=== PATIENT | female | born 1990 | race Caucasian/White ===

== ENCOUNTER → 2017-10-06 12:36 | Outpatient (CLI) | payer OTHER, SELFPAY ==
[2017-10-06 14:28] LABS: Absolute Lymphocyte Count 1.12 X10^3/ul (0.83-4.51); Absolute Neutrophil Count 4.8 X10^3/uL (2.0-7.7); Basophil# 0.01 X10^3/uL; Basophil% 0.2 % (0-1); Eosinophil# 0.05 X10^3/uL; Eosinophils% 0.8 % (0-5); Hematocrit 30.5 % (37-47); Hemoglobin 9.9 g/dl (12.0-15.0); Lymphocyte # 1.12 X10^3/ul (4.0); Mean Corp Hgb Conc 32.5 g/gl (32-36); Mean Corpuscular Hgb 28.4 pg (27.0-32.0); Mean Corpuscular Volume 87.6 fL (81-99); Mean Platelet Vol. 10.9 fl (6.2-12.0); Monocyte# 0.58 X10^3/uL; Monocyte% 8.8 % (0-10); Neutrophil # 4.76 X10^3/uL (2.7-7.7); Neutrophil % 72.4 % (47-70); Platelet Count 131 K/mm3 (150-450); RBC Distribution Width CV 11.7 % (11.6-14.6); RBC Distribution Width SD 36.1 fl (35.1-43.9); Red Blood Count 3.48 M/mm3 (4.2-5.4); White Blood Count 6.6 K/mm3 (4.4-11.0)
[2017-10-06 14:30] LABS: POSITIVE COUNT NO; POSITIVE DIFFERENTIAL NO; POSITIVE MORPHOLOGY NO
[2017-10-06 15:06] LABS: Glucose Challenge Gest 1H 50g 100 mg/dL (70-140)
== END ==
PROVIDERS: Visit Provider Obstetrics & Gynecology
DX: O30.049 Twin pregnancy, dichorionic/diamniotic, unspecified trimester (principal); Z3A.00 Weeks of gestation of pregnancy not specified
CPT/HCPCS: 36415; 82950; 85025

== ENCOUNTER → 2017-10-18 10:44 | Outpatient (CLI) | payer OTHER, SELFPAY ==
[2017-10-18 11:48] LABS: Absolute Lymphocyte Count 1.26 X10^3/ul (0.83-4.51); Absolute Neutrophil Count 4.4 X10^3/uL (2.0-7.7); Basophil# 0.01 X10^3/uL; Basophil% 0.2 % (0-1); Eosinophil# 0.06 X10^3/uL; Eosinophils% 0.9 % (0-5); Hematocrit 32.1 % (37-47); Hemoglobin 10.2 g/dl (12.0-15.0); Lymphocyte # 1.26 X10^3/ul (4.0); Lymphocyte % 19.4 % (19-41); Mean Corp Hgb Conc 31.8 g/gl (32-36); Mean Corpuscular Hgb 27.4 pg (27.0-32.0); Mean Corpuscular Volume 86.3 fL (81-99); Mean Platelet Vol. 11.1 fl (6.2-12.0); Monocyte# 0.73 X10^3/uL; Monocyte% 11.2 % (0-10); Neutrophil % 67.5 % (47-70); Platelet Count 121 K/mm3 (150-450); RBC Distribution Width CV 12.3 % (11.6-14.6); RBC Distribution Width SD 38.4 fl (35.1-43.9); Red Blood Count 3.72 M/mm3 (4.2-5.4); White Blood Count 6.5 K/mm3 (4.4-11.0)
[2017-10-18 12:02] LABS: POSITIVE COUNT NO; POSITIVE DIFFERENTIAL NO; POSITIVE MORPHOLOGY NO
== END ==
PROVIDERS: Visit Provider Obstetrics & Gynecology
DX: O99.019 Anemia complicating pregnancy, unspecified trimester (principal); Z3A.00 Weeks of gestation of pregnancy not specified
CPT/HCPCS: 36415; 85025

== ENCOUNTER → 2017-10-18 14:46 | Outpatient (CLI) | payer OTHER, SELFPAY | PROVIDERS: Visit Provider Obstetrics & Gynecology | DX: O26.893 Other specified pregnancy related conditions, third trimester (principal); L29.9 Pruritus, unspecified; N89.8 Other specified noninflammatory disorders of vagina; O30.049 Twin pregnancy, dichorionic/diamniotic, unspecified trimester; Z3A.00 Weeks of gestation of pregnancy not specified | CPT/HCPCS: 87070; 87086; 87088; 87205 ==

== ENCOUNTER 2017-10-25 11:35 | Outpatient (CLI) | payer OTHER, SELFPAY ==
[2017-10-25 11:47] VITALS: BMI 27.6
[2017-10-25 13:02] LABS: Color, Urine Yellow (Yellow); Glucose, Dipstick Normal (Normal); Ketone-Dipstick 5 mg/dl (Negative); Leukocyte Esterase-Dipstick 25 /ul (Negative); Nitrite-Dipstick Negative (Negative); Occult Blood-Urine 10 /ul (Negative); Protein-Dipstick Negative (Negative); Urine Bilirubin Dipstick Negative (Negative); Urine Clarity Clear (Clear); Urine Urobilinogen Normal (Normal)
[2017-10-25 13:29] LABS: Record Kit Lot#, fFN J7025
[2017-10-25 13:30] LABS: Fetal Fibronectin POSITIVE
[2017-10-25] MEDS: Betamethasone/Betamethasone 30 MG/5 ML Vial 12 MG IM (13:50)
[2017-10-25] MEDS: Lactated Ringers 1,000 ML 999 ML IV (14:50)
[2017-10-25] MEDS: NIFEdipine 10 MG Capsule 30 MG PO (15:01)
--- NOTE | 2017-10-27 03:30 | OB.TRI.NOTE ---
History of Present Illness Date of Service: 10/25/17 Reason For Visit: R/O LABOR OF TWINS Date of Service: 10/25/17 Gestational age: 29 History of Present Illness: 27 yo @ 31 weeks with Di/Di twins presents with threatened PTL. she has had regular ctx q 2-3 minutes for the last few hours, has a uti and is on antibiotics for this. she denies any fevers or vaginal bleeding, feels good fm x 2 and is feeling pelvic pressure Home Medications Medication Instructions Recorded 1 tab PO QDAY 07/27/17 vitamin,calcium,orckrxam-tort-nnwlz acid tablet citalopram 20 mg tablet 20 mg PO QDAY #30 tab 10/18/17 nitrofurantoin 1 cap PO Q12H 7 Days #14 cap 10/22/17 monohydrate/macrocrystals 100 mg capsule Folic Acid 1 mg PO DAILY@0800 10/25/17 Allergies Penicillins Allergy (Verified 10/25/17 11:49) Swelling prednisone Allergy (Verified 10/18/17 09:45) Rash Sulfa (Sulfonamide Antibiotics) Allergy (Verified 10/18/17 09:45) Rash sulfamethoxazole [From Bactrim] Allergy (Verified 10/18/17 09:45) Rash trimethoprim [From Bactrim] Allergy (Verified 10/18/17 09:45) Rash - Pertinent Past Medical History Pertinent Past Medical History: PCOS PSH: none OB History: previous term uncomplicated NST - FHR Rate Baby A Baseline: 140 Variability:: Moderate Accelerations:: 15 x 15 Decelerations:: None NST Reactive:: Yes FHR Category:: Category I Uterine Activity:: q2-3 mints - FHR Rate Baby B Baseline: 140 Variability:: Moderate Accelerations:: 15 x 15 Decelerations:: None NST Reactive:: Yes FHR Category:: Category I Impression/Plan 27 yo @ 31 weeks with Di Di Twins and Threatened PTL positive FFN and regular contractions- recommend transport to tertiary care facility. give procardia and bmz.
== END 2017-10-25 15:28 | disposition other institution (70) ==
LOC: WPOUT 11:40 → WP 11:41
PROVIDERS: Visit Provider Obstetrics & Gynecology
DX: O60.03 Preterm labor without delivery, third trimester (principal); O30.043 Twin pregnancy, dichorionic/diamniotic, third trimester; Z3A.31 31 weeks gestation of pregnancy
CPT/HCPCS: 96365; 59025; 59050; 81002; 82731; 87086; 87088; 96372; 99218; J7120; G0378; J0702

== ENCOUNTER → 2017-10-31 12:38 | Outpatient (CLI) | payer OTHER, SELFPAY | PROVIDERS: Visit Provider Obstetrics & Gynecology | DX: O23.43 Unspecified infection of urinary tract in pregnancy, third trimester (principal); Z3A.00 Weeks of gestation of pregnancy not specified | CPT/HCPCS: 87086; 87088 ==

== ENCOUNTER 2017-11-05 10:25 | Outpatient (CLI) | payer OTHER, SELFPAY ==
[2017-11-05 10:55] VITALS: BMI 27.2
[2017-11-05 11:18] LABS: ROM Internal Control Test YES-OK TO RESULT pt. (Internal QC); ROM Patient Test Negative (Negative)
--- NOTE | 2017-11-05 19:15 | OB.TRI.NOTE ---
History of Present Illness Date of Service: 11/05/17 Was patient seen by the physician?: Yes Reason For Visit: R/OM Date of Service: 11/05/17 Final BROCK: 12/28/17 Gestational age: 32 Weeks and 3 Days History of Present Illness: 27 yo @ 32w3d presents with threatened PTL and questionable lof. she co clear discharge tonight and some irregular ctx. she denies any vaginal bleeding and feesl good movememnt. 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 general: negative GI: negative Home Medications Medication Instructions Recorded 1 tab PO QDAY 07/27/17 vitamin,calcium,ipsfxovp-qeub-dgmeq acid tablet citalopram 20 mg tablet 20 mg PO QDAY #30 tab 10/18/17 Folic Acid 1 mg PO DAILY@0800 10/25/17 Allergies Penicillins Allergy (Verified 11/05/17 10:56) Swelling prednisone Allergy (Verified 11/05/17 10:56) Rash Sulfa (Sulfonamide Antibiotics) Allergy (Verified 11/05/17 10:56) Rash sulfamethoxazole [From Bactrim] Allergy (Verified 11/05/17 10:56) Rash trimethoprim [From Bactrim] Allergy (Verified 11/05/17 10:56) Rash - Pertinent Past Medical History Pertinent Past Medical History: pcos infertility Physical Exam General: Alert, Oriented x3, No apparent distress Cardiovascular: Regular rate Lungs: Normal air movement Abdomen: Soft, Non Tender, Gravid NST - FHR Rate Baby A Baseline: 140 Variability:: Moderate Accelerations:: 15 x 15 Decelerations:: None NST Reactive:: Yes FHR Category:: Category I Uterine Activity:: q2-7 - FHR Rate Baby B Baseline: 140 Variability:: Moderate Accelerations:: 15 x 15 Decelerations:: None NST Reactive:: Yes FHR Category:: Category I Impression/Plan 27 yo @ 32w3d threatened ptl no cervical change. dc home labor precautions
--- NOTE | 2017-11-05 19:19 | OB.TRI.HP_ITS ---
History of Present Illness Date of Service: 11/05/17 Was patient seen by the physician?: Yes Reason For Visit: R/OM Date of Service: 11/05/17 Final BROCK: 12/28/17 Gestational age: 32 Weeks and 3 Days History of Present Illness: 27 yo @ 32w3d presents with threatened PTL and questionable lof. she co clear discharge tonight and some irregular ctx. she denies any vaginal bleeding and feesl good movememnt. 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 GI: negative Home Medications Medication Instructions Recorded 1 tab PO QDAY 07/27/17 vitamin,calcium,seuakyro-tupa-nvhim acid tablet citalopram 20 mg tablet 20 mg PO QDAY #30 tab 10/18/17 Folic Acid 1 mg PO DAILY@0800 10/25/17 Allergies Penicillins Allergy (Verified 11/05/17 10:56) Swelling prednisone Allergy (Verified 11/05/17 10:56) Rash Sulfa (Sulfonamide Antibiotics) Allergy (Verified 11/05/17 10:56) Rash sulfamethoxazole [From Bactrim] Allergy (Verified 11/05/17 10:56) Rash trimethoprim [From Bactrim] Allergy (Verified 11/05/17 10:56) Rash - Pertinent Past Medical History Pertinent Past Medical History: pcos infertility Physical Exam General: Alert, Oriented x3, No apparent distress Cardiovascular: Regular rate Lungs: Normal air movement Abdomen: Soft, Non Tender, Gravid NST - FHR Rate Baby A Baseline: 140 Variability:: Moderate Accelerations:: 15 x 15 Decelerations:: None NST Reactive:: Yes FHR Category:: Category I Uterine Activity:: q2-7 - FHR Rate Baby B Baseline: 140 Variability:: Moderate Accelerations:: 15 x 15 Decelerations:: None NST Reactive:: Yes FHR Category:: Category I Impression/Plan 27 yo @ 32w3d threatened ptl no cervical change. dc home labor precautions
== END 2017-11-05 16:30 | disposition home or self-care (01) ==
LOC: WPOUT 10:43 → WP 10:44
PROVIDERS: Visit Provider Obstetrics & Gynecology
DX: O60.03 Preterm labor without delivery, third trimester (principal); O30.003 Twin pregnancy, unspecified number of placenta and unspecified number of amniotic sacs, third trimester; Z3A.32 32 weeks gestation of pregnancy
CPT/HCPCS: 59025; 59050; 84112; 99218; G0378

== ENCOUNTER 2017-11-11 17:40 | Outpatient (CLI) | payer OTHER, SELFPAY ==
[2017-11-11 18:03] VITALS: BMI 27.6
[2017-11-11 20:29] LABS: Mucous, Urine 0 SEEN /hpf (<or=2+); Red Blood Cells-Urine 0 SEEN /hpf (0-5)
[2017-11-11 20:39] LABS: Color, Urine Yellow (Yellow); Glucose, Dipstick Normal (Normal); Ketone-Dipstick 5 mg/dl (Negative); Leukocyte Esterase-Dipstick 25 /ul (Negative); Nitrite-Dipstick Negative (Negative); Occult Blood-Urine 10 /ul (Negative); Protein-Dipstick 15 mg/dl (Negative); Urine Bilirubin Dipstick Negative (Negative); Urine Clarity Clear (Clear); Urine Urobilinogen Normal (Normal)
[2017-11-11 20:48] VITALS: BP 102/57; PULSE 82; RESP 16; TEMP 36.9; O2SAT 98
[2017-11-11 20:52] LABS: Bacteria 2+ /hpf (None Seen); Squamous Epithelial Cells - UA 5-10 SEEN /hpf (5-10); White Blood Cells 0-5 SEEN /hpf (0-5)
[2017-11-11] MEDS: Nitrofurantoin Macrocrystals 100 MG Capsule PO (21:01)
--- NOTE | 2017-11-14 01:51 | OB.TRI.HP_ITS ---
History of Present Illness Date of Service: 11/11/17 Reason For Visit: RULE OUT LABOR Date of Service: 11/11/17 Final BROCK: 12/27/17 Gestational age: 33 Weeks and 6 Days History of Present Illness: 27 yo @ 33 weeks presetns with pelvic pressure and contractions, upset stomach. she has had threatened PTL in the last few weeks but has been stable. Home Medications Medication Instructions Recorded 1 tab PO QDAY 07/27/17 vitamin,calcium,tsrxwtrr-wnml-wrpbw acid tablet citalopram 20 mg tablet 20 mg PO QDAY #30 tab 10/18/17 Folic Acid 1 mg PO DAILY@0800 10/25/17 Nitrofurantoin Monohyd/M-Cryst 100 mg PO BID #14 cap 11/12/17 [Macrobid 100 mg Capsule] Allergies Penicillins Allergy (Verified 11/14/17 00:45) Swelling Sulfa (Sulfonamide Antibiotics) Allergy (Verified 11/14/17 00:45) Rash sulfamethoxazole [From Bactrim] Allergy (Verified 11/14/17 00:45) Rash trimethoprim [From Bactrim] Allergy (Verified 11/14/17 00:45) Rash vancomycin Allergy (Verified 11/14/17 00:45) Swelling - Pertinent Past Medical History Pertinent Past Medical History: reviewed- pcos depression 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
== END 2017-11-11 21:09 | disposition home or self-care (01) ==
LOC: WPOUT 17:46 → WP 11-13 08:46
PROVIDERS: Visit Provider Obstetrics & Gynecology
DX: O60.03 Preterm labor without delivery, third trimester (principal); O23.43 Unspecified infection of urinary tract in pregnancy, third trimester; Z3A.33 33 weeks gestation of pregnancy
CPT/HCPCS: 59025; 59050; 81001; 87086; 87088; 99218; G0378

== ENCOUNTER 2017-11-14 01:00 | Inpatient (IN) | payer OTHER, SELFPAY ==
[2017-11-14] MEDS: Lactated Ringers 1,000 ML 50 ML IV ×3 (00:15→05:04)
[2017-11-14 00:28] LABS: Absolute Lymphocyte Count 1.84 X10^3/ul (0.83-4.51); Absolute Neutrophil Count 3.7 X10^3/uL (2.0-7.7); Basophil# 0.02 X10^3/uL; Basophil% 0.3 % (0-1); Eosinophil# 0.06 X10^3/uL; Hematocrit 30.2 % (37-47); Hemoglobin 9.5 g/dl (12.0-15.0); Lymphocyte # 1.84 X10^3/ul (4.0); Lymphocyte % 29.4 % (19-41); Mean Corp Hgb Conc 31.5 g/gl (32-36); Mean Corpuscular Hgb 26.4 pg (27.0-32.0); Mean Corpuscular Volume 83.9 fL (81-99); Mean Platelet Vol. 11.6 fl (6.2-12.0); Monocyte# 0.67 X10^3/uL; Monocyte% 10.7 % (0-10); Neutrophil # 3.65 X10^3/uL (2.7-7.7); Neutrophil % 58.3 % (47-70); Platelet Count 100 K/mm3 (150-450); RBC Distribution Width CV 14.1 % (11.6-14.6); RBC Distribution Width SD 43.6 fl (35.1-43.9); White Blood Count 6.3 K/mm3 (4.4-11.0)
[2017-11-14 00:31] LABS: POSITIVE COUNT NO; POSITIVE DIFFERENTIAL NO; POSITIVE MORPHOLOGY NO
[2017-11-14 00:34] LABS: ROM Internal Control Test YES-OK TO RESULT pt. (Internal QC)
[2017-11-14 00:35] LABS: ROM Patient Test POSITIVE (Negative)
[2017-11-14 00:43] VITALS: BMI 28.0
[2017-11-14] MEDS: Betamethasone/Betamethasone 30 MG/5 ML Vial 12 MG IM (01:15)
[2017-11-14 01:17] LABS: Group B Strep DNA By PCR Negative (Negative); Internal Control PASS; Probe Check PASS; Specimen Processing Control PASS
--- NOTE | 2017-11-14 01:32 | HP.PCM_ITS ---
- Problem List (1) premature rupture of membranes (PPROM) with onset of labor after 24 hours of rupture in third trimester, antepartum Status: Acute (2) Anemia affecting Status: Acute Qualifiers: Comment: iron (3) Gestational thrombocytopenia without hemorrhage in third trimester Status: Acute Comment: cbc monthly (4) Discordant growth in twin gestation Status: Acute Qualifiers: Comment: borderline- 10/16/17 20% repeat in 4 weeks with MFM (5) Depression affecting in second trimester, antepartum Status: Acute Comment: Celexa (6) PCOS (polycystic ovarian syndrome) Status: Acute Comment: clomid (7) with history of infertility Status: Acute Qualifiers: Comment: VEL RGI (8) Dichorionic diamniotic twin Status: Acute Qualifiers: Comment: PRR (print) BROCK 12/27/17 Yo DIAMOND Massiel Joo VEL RGI- nl labs there, A+ blood type History Date of Admission: 11/14/17 Final BROCK: 12/27/17 Gestational age: 33 Weeks and 6 Days History of this : 27 yo @ 33w6d presents PPROM IAL 5 cm dilated with clear LOF since tonight and positive amnisure. She has a history of di/di twin with discordant growth, gestational thrombocytopenia, anemia, and this was an infertility . Pertinent Past Medical History: [facility] Medical History PCOS (polycystic ovarian syndrome) (Acute) Social History Smoking Status: Never smoker alcohol intake: never substance use type: does not use caffeine: Yes frequency: 3-4 times per week seatbelt use: always do you feel safe at home: Yes HPI 33 weeks: Details: JOSE CONTRERAS is a 27 year old who presents for routine OB visit. OB Visit BROCK Calculator Estimated Delivery Date 12/27/17 Based on LMP (certain) 03/22/17 Current WG 32w 6d Number 2 Expected Delivery Route/Plan if Vtx Vtx, consider PPTL Specific Issue/Plans Initial OB labs H.2 Platelets: 121 Type and Screen: A positive RPR: neg Rubella: immune HepBsAg: neg HIV: neg GC/Chlamydia: neg/neg Urine Culture: enterococcus HepC: GCT: Rhogam given: Cystic fibrosis carrier screening: neg 11-16 week testing Sequential Screen: NIPT screening: neg Allergies Penicillins Allergy (Verified 11/14/17 00:45) Swelling Sulfa (Sulfonamide Antibiotics) Allergy (Verified 11/14/17 00:45) Rash sulfamethoxazole [From Bactrim] Allergy (Verified 11/14/17 00:45) Rash trimethoprim [From Bactrim] Allergy (Verified 11/14/17 00:45) Rash vancomycin Allergy (Verified 11/14/17 00:45) Swelling Smoking Status: Never smoker Alcohol: None Drug Use: none Number of Fetus(es): 2 - FHT A 130s moderate variability reactive B 130s moderate variability reactive toco q 2-5 Review of Systems Constitutional: Denies: Chills, Fever, Weight Change HEENT: Denies: Head Aches, Sinus Congestion, Sinus Drainage Cardiovascular: Denies: Chest Pain, Palpitations Respiratory: Denies: Cough, Shortness of breath at rest, Sputum production Gastrointestinal: Reports: Abdominal Pain Gynecological: Reports: Vaginal discharge. Denies: Vaginal bleeding Skin: Denies: Rash, Wounds Neurological: Denies: Numbness, Tingling, Focal weakness Psychiatric: Reports: Anxiety, Depression Physical Exam General: Alert, Oriented x3, No apparent distress Cardiovascular: Regular rate Lungs: Normal air movement Abdomen: Soft, Non Tender, Gravid Extremities:: No edema Estimated gestational size: Appropriate for gestational size Presentation: - - Vtx/Vtx Cervix Dilation (cm): 5 Station: 0 Effacement (%): 90 Assessment/Plan Active and Suspected Problems (Last Reviewed 11/07/17 @ 09:27 by Aleisha Leonard) premature rupture of membranes (PPROM) with onset of labor after 24 hours of rupture in third trimester, antepartum (Acute) 27 yo @ 33w6d presents PPROM IAL Di Di twins 1. PPROM- clindamycin, gentamicin, and azithromycin- expectant management until 34 weeks. no tocolysis recommended. 2. Prematurity- give rescue course of steroids 3. Twins- Vtx Vtx, patient wishes to proceed with vaginal delivery 4. Gestational thrombocytopenia 5. anemia- chronic secondary to 6. PCOS 7. Epidural now
[2017-11-14] MEDS: Azithromycin 250 MG Tablet 1000 MG PO (02:04)
[2017-11-14] MEDS: Clindamycin 900 MG/50 ML BAG 75 MG IV (02:39)
[2017-11-14] MEDS: fentaNYL-bupivacaine (epidural) 100 ML BAG EPIDURAL (02:43)
[2017-11-14] MEDS: Oxytocin 30 units/NS 500 ml 30 UNITS/500 ML IV.SOLN 334 UNITS IV (06:10)
--- NOTE | 2017-11-14 06:15 | PCM.OB.VAG ---
- Problem List (1) premature rupture of membranes (PPROM) with onset of labor after 24 hours of rupture in third trimester, antepartum Status: Acute (2) Anemia affecting Status: Acute Qualifiers: Comment: iron (3) Gestational thrombocytopenia without hemorrhage in third trimester Status: Acute Comment: cbc monthly (4) Discordant growth in twin gestation Status: Acute Qualifiers: Comment: borderline- 10/16/17 20% repeat in 4 weeks with MFM (5) Depression affecting in second trimester, antepartum Status: Acute Comment: Celexa (6) PCOS (polycystic ovarian syndrome) Status: Acute Comment: clomid (7) with history of infertility Status: Acute Qualifiers: Comment: VEL RGI (8) Dichorionic diamniotic twin Status: Acute Qualifiers: Comment: PRR (print) BROCK 12/27/17 Yo DIAMOND Massiel Joo VEL RGI- nl labs there, A+ blood type Vaginal Delivery Maternal Presentation: Active Labor 27-year-old at 33 weeks 6 days presents with P PROM and in active labor. Patient presented at 5 cm dilation with clear rupture of membranes this morning. She denies any signs or symptoms of infection. Her is complicated by di-di-twins anemia gestational thrombocytopenia and depression Medical Reason for Induction: Premature Rupture of Membranes Amniotic Membrane Rupture Type: Spontaneous at home Amniotic Fluid Description: Clear Final BROCK: 12/27/17 Gestational age: 33 Weeks and 6 Days Date of Procedure: 11/14/17 Pre-Operative Diagnosis: P PROM Post-Operative Diagnosis: Same Surgery/ Procedure Performed: Spontaneous Vaginal Delivery Type of Anesthesia: Epidural Description of Procedure: Patient proceeded to complete dilation and delivered the head atraumatically followed by the anterior and posterior shoulders without complication was the delivered with bulb suction at delivery and the cord was clamped and cut after delayed cord clamping for approximately 60 seconds was employed. Then waited for several contractions until the head was well applied and was confirmed to be vertex on ultrasound and then the water was ruptured patient began pushing once she was complete and delivered the head atraumatically followed by the anterior and posterior shoulders the rest the delivered was delivered in the MISSY presentation. Delayed cord clamping was employed for approximately 60 seconds and then the was passed off to waiting nurse for resuscitation. Placenta was delivered spontaneously immediately following was noted to be intact with 2 three-vessel cords and thick dividing membrane, they appeared to be one large placenta but difficult to completely ascertain. No vaginal lacerations were noted EBL was 300 cc. Patient tolerated the delivery well. Presentation: YAMIL Placental Delivery Description: Spontaneous Placenta Disposition: [facility] Cord Vessel Description: 3 Vessels Cord Entanglement: None Estimated Blood Loss: 300 Infant A gender: Male Episiotomy Description: None Laceration: None Medications given after delivery: IV Pitocin Complications: None Baby B - Information Amniotic Membrane Rupture Type: Artificial Presentation: Vertex - Operative Information Cord Entanglement: None Cord Vessel Description: 3 Vessels Infant B gender: Male
[2017-11-14] MEDS: Oxytocin 30 units/NS 500 ml 30 UNITS/500 ML IV.SOLN 167 UNITS IV (06:40)
[2017-11-14] MEDS: Acetaminophen 500 MG Tablet 1000 MG PO ×3 (07:43→23:12)
[2017-11-14] MEDS: Nitrofurantoin Macrocrystals 100 MG Capsule PO ×2 (08:56→17:00)
--- NOTE | 2017-11-14 09:27 | NURSING ---
Pt has not voided since del, has been up to the br x2. Pt states she doesnt feel like she can go yet.
[2017-11-14 10:00] VITALS: BP 122/69; PULSE 77; RESP 16; TEMP 36.8; O2SAT 96
[2017-11-14] MEDS: Citalopram 20 MG Tablet PO (10:40)
[2017-11-14] MEDS: Naproxen 250 MG Tablet PO (10:41)
[2017-11-14] MEDS: Prenatal Vits Tablet 1 TABLET PO (13:08)
[2017-11-14 15:00] VITALS: BP 102/59; PULSE 72; RESP 18; TEMP 36.9; O2SAT 98
[2017-11-14] MEDS: Methylergonovine 0.2 MG/ML Ampul IM (15:37)
[2017-11-14 16:15] VITALS: BP 121/78; PULSE 54; RESP 16; O2SAT 100
--- NOTE | 2017-11-14 16:17 | NURSING ---
pt was up to the br and called for assistance, she had been to the nursery to visit the babies when she felt a gush. pt had passed 2 large clots, made aware, new order obtained for methergine, med given. vital signs obtained and charted, pt assisted into the shower and cleaned up. pt returned to bed. minutes later her called out and stated she felt another gush. pt was in the bathroom, pad noted to be largely saturated, pad weighed for 210ml. pt cleaned up and assisted back into bed, i will update .
--- NOTE | 2017-11-14 16:37 | NURSING ---
new orders received from marcellus mcginnis to get cytotec 200mcg po now and every 6 hours x 4 doses. draw a h/h in 2 hours. charge nurse gildardo julien made aware.
[2017-11-14] MEDS: miSOPROStol 200 MCG Tablet PO ×2 (16:42→23:03)
[2017-11-14 18:32] LABS: Hematocrit 30.3 % (37-47); Hemoglobin 9.7 g/dl (12.0-15.0)
[2017-11-14 20:45] VITALS: BP 105/60; PULSE 84; RESP 16; TEMP 36.9; O2SAT 95
[2017-11-14 23:40] VITALS: BP 119/70; PULSE 64; RESP 16; TEMP 37.1; O2SAT 98
[2017-11-15] MEDS: Naproxen 250 MG Tablet PO ×2 (04:22→13:21)
[2017-11-15] MEDS: miSOPROStol 200 MCG Tablet PO ×2 (04:22→10:48)
[2017-11-15 04:42] VITALS: BP 104/58; PULSE 93; RESP 18; TEMP 36.6; O2SAT 95
[2017-11-15] MEDS: Nitrofurantoin Macrocrystals 100 MG Capsule PO ×2 (07:49→16:48)
[2017-11-15] MEDS: Acetaminophen 500 MG Tablet 1000 MG PO (07:49)
--- NOTE | 2017-11-15 07:49 | PCM.PN.OB ---
Patient Problems: Active and Suspected Problems (Last Reviewed 11/07/17 @ 09:27 by Aleisha Leonard) premature rupture of membranes (PPROM) with onset of labor after 24 hours of rupture in third trimester, antepartum (Acute) Subjective: doing well. Denies SOB, CP, NV. Some soreness over coccyx, manage with tylenol. Up ambulating, normal bowel/bladder habit. - Physical Exam General: Alert, Oriented x3 Abdomen: Soft, Non Tender, - - FF below U Vital Signs Temp Pulse Resp BP Pulse Ox 97.8 F 93 18 104/58 L 95 11/15/17 04:42 11/15/17 04:42 11/15/17 04:42 11/15/17 04:42 11/15/17 04:42 Oxygen Delivery Method Room Air Weight: 153 lb Body Mass Index (BMI) 28.0 Intake and Output for Last 24 Hours 11/13/17 11/14/17 11/15/17 23:59 23:59 23:59 Intake Total 1999 / 1999 Output Total 300 / 300 Balance 1700 / 1700 Laboratory Tests Past 24 Hrs 11/14/17 18:15 Hgb 9.7 L Hct 30.3 L Medical Necessity - Tobacco Use Smoking Status: Never smoker Assessment/Plan Active and Suspected Problems (Last Reviewed 11/07/17 @ 09:27 by Aleisha Leonard) premature rupture of membranes (PPROM) with onset of labor after 24 hours of rupture in third trimester, antepartum (Acute) S/P twin delivery-babies is special care nursery/stable. PPD 1. Undecided breast/bottle feed. Feeling stressed over that, currently pumping. Otherwise doing well, routine care.
[2017-11-15 07:59] VITALS: BP 98/72; PULSE 90; RESP 16; TEMP 36.8; O2SAT 99
[2017-11-15] MEDS: Citalopram 20 MG Tablet PO (10:48)
[2017-11-15 13:25] VITALS: BP 99/69; PULSE 78; RESP 18; TEMP 36.9
[2017-11-15 19:39] VITALS: BP 106/72; PULSE 61; RESP 16; TEMP 37; O2SAT 97
[2017-11-15] MEDS: DiphenhydrAMINE 25 MG Capsule 50 MG PO (19:44)
[2017-11-16 01:57] VITALS: BP 107/71; PULSE 55; RESP 16; TEMP 36.8; O2SAT 98
[2017-11-16] MEDS: Naproxen 250 MG Tablet PO (05:17)
[2017-11-16 09:08] VITALS: BP 108/58; PULSE 79; RESP 18; TEMP 36.6; O2SAT 100
[2017-11-16] MEDS: Nitrofurantoin Macrocrystals 100 MG Capsule PO (09:33)
[2017-11-16] MEDS: Citalopram 20 MG Tablet PO (09:34)
--- NOTE | 2017-11-16 12:44 | DCINST_ITS ---
Discharge Diet: No Restrictions Discharge Activity: Return to Normal Activity, May not drive while taking narcotic pain medications., May Shower May resume sexual activity in: 4-6 weeks Call your doctor if your incision/area has: Continuous Slow Oozing, Sudden Increased Bleeding, Increased Pain/ Swelling, Increased Redness, Foul Smelling Discharge Additional Instructions: If you experience any of the following, contact your healthcare provider. * Bleeding that soaks a pad every hour for 2 hours * Fever 100.4 or higher * Unrelieved incision or abdominal pain * Swelling, redness, discharge or bleeding from your incision or episiotomy site * Your incision begins to separate * Problems urinating (including inability to urinate or burning while urinating) . * Visual changes * Severe headache * Flu-like symptoms * Pain or redness in one of both of your breasts * Pain, warmth, tenderness or swelling in your legs, especially the calf area * Frequent nausea and vomiting * Symptoms of depression or anxiety If you experience any of the following, call 911 or go to the nearest Emergency Room. * Chest pain * Problems breathing * Seizure activity * Partial or complete paralysis of a body part, slurred speech, weakness or drooping of the face, or a sudden inability to walk or hold your balance Allergies/Adverse Reactions: Allergies Penicillins Allergy (Verified 11/14/17 00:45) Swelling Sulfa (Sulfonamide Antibiotics) Allergy (Verified 11/14/17 00:45) Rash sulfamethoxazole [From Bactrim] Allergy (Verified 11/14/17 00:45) Rash trimethoprim [From Bactrim] Allergy (Verified 11/14/17 00:45) Rash vancomycin Allergy (Verified 11/14/17 00:45) Swelling Medications to take at Discharge vitamin,calcium,bkfucthb-yyjo-pfqzh acid tablet 1 tab PO QDAY 07/27/17 citalopram 20 mg tablet 20 mg PO QDAY #30 tab 10/18/17 Folic Acid 1 mg PO DAILY@0800 10/25/17 Nitrofurantoin Monohyd/M-Cryst [Macrobid 100 mg Capsule] 100 mg PO BID #14 cap 11/12/17 Please Follow Up With: Leann Rosas MD - [phone] When: Call to make an appointment with your doctor in 6 weeks. If you had elevated Blood pressure or 4th degree laceration you will need to be seen in 2 weeks. Primary Care Physician: Care Physician,No Primary [Primary Care Provider] -
--- NOTE | 2017-11-16 12:46 | PN.OBGYN_ITS ---
Patient Problems: Active and Suspected Problems (Last Reviewed 11/07/17 @ 09:27 by Aleisha Leonard) premature rupture of membranes (PPROM) with onset of labor after 24 hours of rupture in third trimester, antepartum (Acute) Subjective: doing well no complaints - Physical Exam General: Alert, Oriented x3 Vital Signs Temp Pulse Resp BP Pulse Ox 97.9 F 79 18 108/58 L 100 11/16/17 09:08 11/16/17 09:08 11/16/17 09:08 11/16/17 09:08 11/16/17 09:08 Oxygen Delivery Method Room Air Weight: 153 lb Body Mass Index (BMI) 28.0 Intake and Output for Last 24 Hours 11/14/17 11/15/17 11/16/17 23:59 23:59 23:59 Intake Total 1999 / 1999 Output Total 300 / 300 Balance 1700 / 1700 Medical Necessity - Tobacco Use Smoking Status: Never smoker Assessment/Plan Active and Suspected Problems (Last Reviewed 11/07/17 @ 09:27 by Aleisha Leonard) premature rupture of membranes (PPROM) with onset of labor after 24 hours of rupture in third trimester, antepartum (Acute) s/p twins routine care dc to [facility] status
[2017-11-16 15:00] VITALS: BP 102/60; PULSE 70; RESP 16; TEMP 36.7
== END 2017-11-16 15:35 | disposition home or self-care (01) | DRG 775 ==
LOC: WPOUT 01:01
PROVIDERS: Admitting Provider Obstetrics & Gynecology; Visit Provider Obstetrics & Gynecology
DX: O42.113 Preterm premature rupture of membranes, onset of labor more than 24 hours following rupture, third trimester (principal); D69.6 Thrombocytopenia, unspecified; O60.12X1 Preterm labor second trimester with preterm delivery second trimester, fetus 1; O60.12X2 Preterm labor second trimester with preterm delivery second trimester, fetus 2; O99.12 Other diseases of the blood and blood-forming organs and certain disorders involving the immune mechanism complicating childbirth; O30.042 Twin pregnancy, dichorionic/diamniotic, second trimester; E28.2 Polycystic ovarian syndrome; O30.043 Twin pregnancy, dichorionic/diamniotic, third trimester; O99.343 Other mental disorders complicating pregnancy, third trimester; O99.02 Anemia complicating childbirth; D64.9 Anemia, unspecified; F32.9 Major depressive disorder, single episode, unspecified; Z3A.33 33 weeks gestation of pregnancy; Z37.2 Twins, both liveborn
CPT/HCPCS: 59025; 59050; 76815; 84112; 85014; 85018; 85025; 86850; 86900; 87081; 87653; 99218; J7120; G0378; J0702

== ENCOUNTER → 2017-12-22 11:25 | Outpatient (CLI) | payer OTHER, SELFPAY ==
[2017-12-22 12:32] LABS: Absolute Lymphocyte Count 0.92 X10^3/ul (0.83-4.51); Absolute Neutrophil Count 4.1 X10^3/uL (2.0-7.7); Basophil# 0.02 X10^3/uL; Basophil% 0.4 % (0-1); Hematocrit 36.2 % (37-47); Hemoglobin 10.6 g/dl (12.0-15.0); Lymphocyte # 0.92 X10^3/ul (4.0); Lymphocyte % 17.4 % (19-41); Mean Corp Hgb Conc 29.3 g/gl (32-36); Mean Corpuscular Hgb 24.9 pg (27.0-32.0); Mean Corpuscular Volume 85.2 fL (81-99); Mean Platelet Vol. 10.6 fl (6.2-12.0); Monocyte# 0.23 X10^3/uL; Monocyte% 4.3 % (0-10); Neutrophil # 4.11 X10^3/uL (2.7-7.7); Neutrophil % 77.5 % (47-70); Platelet Count 227 K/mm3 (150-450); Red Blood Count 4.25 M/mm3 (4.2-5.4); White Blood Count 5.3 K/mm3 (4.4-11.0)
[2017-12-22 12:39] LABS: POSITIVE COUNT NO; POSITIVE DIFFERENTIAL NO; POSITIVE MORPHOLOGY NO
== END ==
PROVIDERS: Visit Provider Obstetrics & Gynecology
DX: O30.049 Twin pregnancy, dichorionic/diamniotic, unspecified trimester (principal); L29.9 Pruritus, unspecified; Z3A.00 Weeks of gestation of pregnancy not specified
CPT/HCPCS: 36415; 85025

== ENCOUNTER → 2018-03-17 09:31 | Outpatient (CLI) | payer OTHER, SELFPAY ==
[2018-03-17 10:21] LABS: Absolute Lymphocyte Count 1.31 X10^3/ul (0.83-4.51); Absolute Neutrophil Count 1.9 X10^3/uL (2.0-7.7); Basophil# 0.03 X10^3/uL; Basophil% 0.8 % (0-1); Eosinophil# 0.14 X10^3/uL; Eosinophils% 3.6 % (0-5); Hematocrit 37.6 % (37-47); Hemoglobin 11.5 g/dl (12.0-15.0); Lymphocyte # 1.31 X10^3/ul (4.0); Lymphocyte % 33.3 % (19-41); Mean Corp Hgb Conc 30.6 g/gl (32-36); Mean Corpuscular Hgb 25.8 pg (27.0-32.0); Mean Corpuscular Volume 84.5 fL (81-99); Mean Platelet Vol. 11.2 fl (6.2-12.0); Monocyte# 0.54 X10^3/uL; Monocyte% 13.7 % (0-10); Neutrophil # 1.91 X10^3/uL (2.7-7.7); Neutrophil % 48.6 % (47-70); POSITIVE COUNT NO; POSITIVE DIFFERENTIAL NO; POSITIVE MORPHOLOGY NO; Platelet Count 180 K/mm3 (150-450); RBC Distribution Width CV 14.3 % (11.6-14.6); RBC Distribution Width SD 44.4 fl (35.1-43.9); Red Blood Count 4.45 M/mm3 (4.2-5.4); White Blood Count 3.9 K/mm3 (4.4-11.0)
[2018-03-21 11:09] LABS: Vitamin D 1,25-Dihydroxy 63.7 pg/mL (19.9-79.3)
== END ==
PROVIDERS: Visit Provider Obstetrics & Gynecology
DX: R53.83 Other fatigue (principal)
CPT/HCPCS: 82652; 84443; 85025

== ENCOUNTER → 2020-01-28 | Outpatient (CLI) | payer OTHER, SELFPAY ==
[2020-01-28 10:01] VITALS: BMI 26.0
[2020-02-01 11:20] LABS: HPV APTIMA, High Risk Negative (Negative)
== END | disposition home or self-care (01) ==
LOC: LABSPEC 14:37
PROVIDERS: PCP Family Medicine; Referring Provider Nurse Practitioner Women's Health; Visit Provider Nurse Practitioner Women's Health
DX: Z12.4 Encounter for screening for malignant neoplasm of cervix (principal)
CPT/HCPCS: 87624; 88175; G0145

== ENCOUNTER → 2020-08-24 12:02 | Outpatient (CLI) | payer OTHER, SELFPAY ==
[2020-01-28 10:01] VITALS: BMI 26.0
[2020-08-24 15:37] LABS: Absolute Lymphocyte Count 1.51 X10^3/uL (0.83-4.51); Absolute Neutrophil Count 3.3 X10^3/uL (2.0-7.7); Basophil# 0.04 X10^3/uL; Basophil% 0.7 % (0-1); Eosinophil# 0.13 X10^3/uL; Eosinophils% 2.3 % (0-5); Hematocrit 39.8 % (37-47); Hemoglobin 13.6 g/dL (12.0-15.0); Lymphocyte # 1.51 X10^3/ul (4.0); Lymphocyte % 27.3 % (19-41); Mean Corp Hgb Conc 34.2 g/dL (32-36); Mean Corpuscular Hgb 33.3 pg (27.0-32.0); Mean Corpuscular Volume 97.5 fL (81-99); Mean Platelet Vol. 10.3 fl (6.2-12.0); Monocyte# 0.56 X10^3/uL; Monocyte% 10.1 % (0-10); NRBC Flagged by Analyzer 0 % (0-5); Neutrophil # 3.28 X10^3/uL (2.7-7.7); Neutrophil % 59.2 % (47-70); Platelet Count 223 K/mm3 (150-450); RBC Distribution Width CV 11.7 % (11.6-14.6); RBC Distribution Width SD 40.7 fl (35.1-43.9); Red Blood Count 4.08 M/mm3 (4.2-5.4); White Blood Count 5.5 K/mm3 (4.4-11.0)
[2020-08-24 15:42] LABS: Erythrocyte Sedimentation Rate 1 mm/hr (0-30)
[2020-08-24 16:02] LABS: ALB/GLOB Ratio 1.2 RATIO (0.9-2.4); AST(SGOT) 46 U/L (15-37); Alanine Aminotransfer ALT/SGPT 45 U/L (13-56); Albumin, Serum 4.3 g/dL (3.2-5.0); Alkaline Phosphatase 74 U/L (45-117); Anion Gap 7 (5-15); BUN 20 mg/dL (7-18); BUN/Creat Ratio 29.9 RATIO (10-20); CRP 5.06 mg/L (0.0-3.0); Calcium,Total 9.3 mg/dL (8.5-10.1); Chloride 100 mmol/L (98-107); Creatinine, Serum 0.67 mg/dL (0.55-1.02); EST Glomerular Filtration Rate 108 mL/min (>60); Est Glom Filt Rate - Afr Amer 131 mL/min (>60); Globulin 3.6 g/dL (2.2-4.2); Glucose 80 mg/dL (74-106); Potassium 3.6 mmol/L (3.5-5.1); Protein, Total 7.9 g/dL (6.4-8.2); Rheumatoid Factor < 10.0 IU/mL (<15); Sodium Level 137 mmol/L (136-145)
[2020-08-26 20:58] LABS: ANTINUCLEAR ANTIBODIES DIRECT Negative (Negative)
[2020-08-27 15:14] LABS: CCP IgG Antibodies 5 units (0-19)
== END ==
PROVIDERS: PCP Family Medicine; Visit Provider Family Medicine
DX: M25.50 Pain in unspecified joint (principal); M79.10 Myalgia, unspecified site; L72.0 Epidermal cyst
CPT/HCPCS: 36415; 80053; 85025; 85652; 86038; 86140; 86200; 86225; 86235; 86431

== ENCOUNTER → 2021-03-15 08:17 | Outpatient (CLI) | payer OTHER, SELFPAY ==
[2020-10-20 09:36] VITALS: BMI 21.7
--- NOTE | 2021-03-15 08:22 | US_ITS ---
STUDY: ULTRASOUND OF THE FEMALE PELVIS - COMPLETE REASON FOR EXAM: Female, 30 years old. Dysmenorrhea LMP: 03/08/2021. TECHNIQUE: Transabdominal and Transvaginal TECHNICAL QUALITY: Adequate. COMPARISON: None. FINDINGS: The uterus is retroverted and is in a midline position. The uterus measures 7.1 cm x 4.4 cm x 3.7 cm. Normal uterine cervix. The endometrium measures 4 mm in thickness, and is hyperechoic. There is no demonstrated endometrial mass. There is no demonstrated myometrial mass. I.U.D. - The patient does not have an I.U.D. The right ovary is visualized. The right ovary measures 3.9 cm x 1.9 cm x 1.9 cm. There is no right ovarian cyst or ovarian mass. There is no visualized right adnexal mass or complex lesion. There is normal arterial and normal venous vascularity. The left ovary is visualized. The left ovary measures 3.6 cm x 2.1 cm x 1.5 cm. There is no left ovarian cyst or ovarian mass. There is no visualized left adnexal mass or complex lesion. There is normal arterial and normal venous vascularity. There is no fluid in the cul-de-sac. The pre void volume of the bladder was 63 milliliters US/Transvaginal Non- IMPRESSION: Normal female pelvis. Electronically Signed: Sivakumar Shultz MD at 9:44 EDT , Service support ,
--- NOTE | 2021-03-15 08:22 | US_ITS ---
STUDY: ULTRASOUND OF THE FEMALE PELVIS - COMPLETE REASON FOR EXAM: Female, 30 years old. Dysmenorrhea LMP: 03/08/2021. TECHNIQUE: Transabdominal and Transvaginal TECHNICAL QUALITY: Adequate. COMPARISON: None. FINDINGS: The uterus is retroverted and is in a midline position. The uterus measures 7.1 cm x 4.4 cm x 3.7 cm. Normal uterine cervix. The endometrium measures 4 mm in thickness, and is hyperechoic. There is no demonstrated endometrial mass. There is no demonstrated myometrial mass. I.U.D. - The patient does not have an I.U.D. The right ovary is visualized. The right ovary measures 3.9 cm x 1.9 cm x 1.9 cm. There is no right ovarian cyst or ovarian mass. There is no visualized right adnexal mass or complex lesion. There is normal arterial and normal venous vascularity. The left ovary is visualized. The left ovary measures 3.6 cm x 2.1 cm x 1.5 cm. There is no left ovarian cyst or ovarian mass. There is no visualized left adnexal mass or complex lesion. There is normal arterial and normal venous vascularity. There is no fluid in the cul-de-sac. The pre void volume of the bladder was 63 milliliters US/Pelvic (Non ) IMPRESSION: Normal female pelvis. Electronically Signed: Sivakumar Shultz MD at 9:44 EDT , Service support ,
== END ==
PROVIDERS: PCP Family Medicine; Referring Provider Nurse Practitioner Women's Health; Visit Provider Nurse Practitioner Women's Health
DX: N92.0 Excessive and frequent menstruation with regular cycle (principal); N94.6 Dysmenorrhea, unspecified
CPT/HCPCS: 76830; 76856

== ENCOUNTER → 2021-06-16 18:00 | Outpatient (CLI) | payer OTHER, SELFPAY | PROVIDERS: PCP Family Medicine; Visit Provider Family Medicine | DX: N39.0 Urinary tract infection, site not specified (principal) | CPT/HCPCS: 87086; 87088 ==

== ENCOUNTER → 2022-09-14 | Outpatient (CLI) | payer OTHER, SELFPAY ==
[2022-09-14 15:55] LABS: Absolute Lymphocyte Count 1.86 X10^3/uL (0.83-4.51); Absolute Neutrophil Count 3.1 X10^3/uL (2.0-7.7); Basophil# 0.04 X10^3/uL; Basophil% 0.7 % (0-1); Eosinophil# 0.22 X10^3/uL; Eosinophils% 3.7 % (0-5); Hematocrit 38.2 % (37-47); Hemoglobin 12.4 g/dL (12.0-15.0); Lymphocyte # 1.86 X10^3/ul (0.83-4.51); Lymphocyte % 31.3 % (19-41); Mean Corp Hgb Conc 32.5 g/dL (32-36); Mean Corpuscular Hgb 29.7 pg (27.0-32.0); Mean Corpuscular Volume 91.6 fL (81-99); Mean Platelet Vol. 9.5 fl (6.2-12.0); Monocyte# 0.76 X10^3/uL; Monocyte% 12.8 % (0-10); NRBC Flagged by Analyzer 0 % (0-5); Neutrophil # 3.06 X10^3/uL (2.7-7.7); Neutrophil % 51.3 % (47-70); Platelet Count 223 K/mm3 (150-450); RBC Distribution Width CV 11.9 % (11.6-14.6); RBC Distribution Width SD 39.9 fl (35.1-43.9); Red Blood Count 4.17 M/mm3 (4.2-5.4)
[2022-09-14 16:58] LABS: Thyroid Stim Hormone (TSH) 2.29 uIU/mL (0.358-3.74)
[2022-09-20 11:34] LABS: Testosterone Free 1.3 pg/mL (0.0-4.2)
== END | disposition home or self-care (01) ==
LOC: PAVLAB 15:39
PROVIDERS: Registered Nurse; PCP Family Medicine; Referring Provider Obstetrics & Gynecology; Visit Provider Obstetrics & Gynecology
DX: Z13.29 Encounter for screening for other suspected endocrine disorder (principal); N92.0 Excessive and frequent menstruation with regular cycle
CPT/HCPCS: 36415; 84402; 84439; 84443; 85025

== ENCOUNTER → 2024-02-14 | Outpatient (CLI) | payer OTHER, SELFPAY ==
[2024-02-14 09:19] LABS: Absolute Lymphocyte Count 1.39 X10^3/uL (0.83-4.51); Absolute Neutrophil Count 2.5 X10^3/uL (2.0-7.7); Basophil# 0.03 X10^3/uL; Basophil% 0.7 % (0-1); Eosinophil# 0.12 X10^3/uL; Eosinophils% 2.6 % (0-5); Hematocrit 35.7 % (37-47); Hemoglobin 11.2 g/dL (12.0-15.0); Lymphocyte # 1.39 X10^3/ul (0.83-4.51); Lymphocyte % 30.5 % (19-41); Mean Corp Hgb Conc 31.4 g/dL (32-36); Mean Corpuscular Hgb 27.4 pg (27.0-32.0); Mean Corpuscular Volume 87.3 fL (81-99); Mean Platelet Vol. 9.9 fl (6.2-12.0); Monocyte# 0.54 X10^3/uL; Monocyte% 11.9 % (0-10); NRBC Flagged by Analyzer 0 % (0-5); Neutrophil # 2.46 X10^3/uL (2.7-7.7); Neutrophil % 54.1 % (47-70); Platelet Count 213 K/mm3 (150-450); RBC Distribution Width CV 12.7 % (11.6-14.6); RBC Distribution Width SD 40.2 fl (35.1-43.9); Red Blood Count 4.09 M/mm3 (4.2-5.4); White Blood Count 4.6 K/mm3 (4.4-11.0)
[2024-02-14 09:37] LABS: Vitamin D,25 Hydroxy 62.3 ng/mL
[2024-02-14 09:42] LABS: AST(SGOT) 17 U/L (15-37); Alanine Aminotransfer ALT/SGPT 18 U/L (13-56); Albumin, Serum 3.6 g/dL (3.2-5.0); Alkaline Phosphatase 66 U/L (45-117); Anion Gap 4 (5-15); BUN 16 mg/dL (7-18); BUN/Creat Ratio 22.9 RATIO (10-20); Calcium,Total 8.4 mg/dL (8.5-10.1); Chloride 104 mmol/L (98-107); Cholesterol 217 mg/dL (200); EST Glomerular Filtration Rate 101 mL/min (>60); Est Glom Filt Rate - Afr Amer 122 mL/min (>60); Estradiol 15.6 pg/mL; Follicle Stimulating Hormone 6.2 mIU/mL; Globulin 3.5 g/dL (2.2-4.2); Glucose 92 mg/dL (74-106); High Density Lipoprotein 77 mg/dL; Potassium 4.5 mmol/L (3.5-5.1); Protein, Total 7.1 g/dL (6.4-8.2); Sodium Level 136 mmol/L (136-145); Thyroid Stim Hormone (TSH) 1.97 uIU/mL (0.358-3.74); Triglycerides 54 mg/dL; Very Low Density Lipoprotein 11 mg/dL (5-40)
[2024-02-17 14:09] LABS: Testosterone Free 0.8 pg/mL (0.0-4.2)
== END | disposition home or self-care (01) ==
LOC: PAVLAB 09:03
PROVIDERS: PCP Family Medicine; Referring Provider Nurse Practitioner Family; Visit Provider Nurse Practitioner Family
DX: E28.2 Polycystic ovarian syndrome (principal); R53.83 Other fatigue; N94.6 Dysmenorrhea, unspecified; N92.0 Excessive and frequent menstruation with regular cycle; Z13.220 Encounter for screening for lipoid disorders
CPT/HCPCS: 36415; 80053; 80061; 82306; 82627; 82670; 83001; 83036; 84402; 84439; 84443; 85025; 82626

== ENCOUNTER → 2024-02-15 | Outpatient (CLI) | payer OTHER, SELFPAY ==
--- NOTE | 2024-02-15 13:43 | US_ITS ---
HISTORY: PCOS, dysmenorrhea. TECHNIQUE: Transabdominal and transvaginal pelvic ultrasound was performed with martínez scale and color Doppler evaluation. 113 images. COMPARISON: 03/15/2021. FINDINGS: UTERUS: 7.9 x 4.1 x 4.8 cm. Retroverted. ENDOMETRIAL THICKNESS: 4 mm. RIGHT OVARY: 1.6 x 2.1 x 3.4 cm right volume of 6 cc with several follicles present. No adnexal masses LEFT OVARY: 1.4 x 2 x 3.8 cm for a volume of 4 cc with several follicles present. Vascular flow demonstrated. No adnexal masses FREE FLUID: None. URINARY BLADDER: Unremarkable at 113 cc. US/Pelvic w/ Transvaginal IMPRESSION: Unremarkable pelvic ultrasound. Electronically Signed: Lexii Taveras MD at 13:46 EDT ,
--- NOTE | 2024-02-15 13:43 | BI_ITS ---
MAMMOGRAPHY - BILATERAL SCREENING REASON FOR EXAM: Female, 33 years old. Routine annual screening examination. PERTINENT HISTORY: Grandmother with breast cancer. TECHNIQUE: Digital bilateral breast maria l (3D mammographic acquisition) in the CC and MLO projections. 2-D mediolateral oblique (MLO) and craniocaudad (CC) views of both breasts were obtained. CAD: Full Field Digital Mammography with Computer Added Detection was performed. COMPARISON: None. Baseline examination. FINDINGS: Breast Composition: The breasts are heterogeneously dense, which may obscure small masses. There are no dominant masses or suspicious calcifications. No other significant abnormalities are identified. BI/SCRN MAMM (CAD)W/MARIA L BILAT IMPRESSION: Negative screening mammogram. Yearly followup mammogram recommended. (A) ASSESSMENT CATEGORY: BIRADS Category 1: Negative. A letter regarding these results will be sent to the patient by the facility within 30 days. Approximately 10% of breast cancers are not detected by mammography. A normal mammogram should not delay biopsy of a clinically suspicious abnormality. [id number] Electronically Signed: Sivakumar Shultz MD at 16:18 EDT ,
== END | disposition home or self-care (01) ==
PROVIDERS: PCP Family Medicine; Referring Provider Nurse Practitioner Family; Visit Provider Nurse Practitioner Family
DX: Z12.31 Encounter for screening mammogram for malignant neoplasm of breast (principal); Z80.3 Family history of malignant neoplasm of breast; N94.6 Dysmenorrhea, unspecified; E28.2 Polycystic ovarian syndrome
CPT/HCPCS: 76830; 76856; 77063; 77067